=== PATIENT | female | born 1960 | race Caucasian/White ===

== ENCOUNTER 2020-06-10 08:35 | Day surgery (SDC) | payer BC ==
[2020-06-10] MEDS ORDERED: Decadron 4 MG INJ IV ONE (08:36)
[2020-06-10] MEDS ORDERED: LIDOCAINE HCL 2% 100 MG/5 ML IJ ONE (08:36)
[2020-06-10] MEDS ORDERED: Ketamine HCl 50 MG/ML ONE (09:58)
[2020-06-10] MEDS ORDERED: DIPRIVAN 200 MG/20 ML IV ONE (09:58)
--- NOTE | 2020-06-10 11:38 | XRAY ---
Indication: Left C3-C5 MBB. Intraoperative fluoroscopy was provided for 31 seconds. 2 digital spot images submitted for interpretation demonstrates posterior needle tips projecting over the expected C3-C5 nerve roots. Correlate with intraoperative findings/report.
--- NOTE | 2020-06-10 11:51 | XRAY ---
31 seconds fluoroscopy time in surgery for left C3-C5 MBB.
[2020-06-10] MEDS ORDERED: Lactated Ringers 1,000 ML IV ONE (15:24)
== END 2020-06-10 10:40 | disposition home or self-care (01) ==
LOC: SDC-PAIN 08:35
PROVIDERS: ATTEND Psychiatry & Neurology Pain Medicine
DX: M47.812 Spondylosis without myelopathy or radiculopathy, cervical region (principal); E11.9 Type 2 diabetes mellitus without complications; I10 Essential (primary) hypertension; J45.909 Unspecified asthma, uncomplicated
CPT/HCPCS: 64490; 64491; 72020; 77002; 82962; J1100; J2704

== ENCOUNTER 2020-07-29 07:59 | Day surgery (SDC) | payer BC ==
[~2020-07-29 07:59] MED LIST: DIPRIVAN 200 MG/20 ML IV ONE; Ketamine HCl 50 MG/ML ONE
[2020-07-29] MEDS ORDERED: Decadron 4 MG INJ IV ONE (08:00)
[2020-07-29] MEDS ORDERED: BUPIVACAINE 0.5% VIAL IJ ONE (08:00)
--- NOTE | 2020-07-29 10:59 | XRAY ---
Indication: Left C3-C5 MBB. Intraoperative fluoroscopy was provided for 45 seconds. 3 digital spot images submitted for interpretation demonstrates posterior needle tips projecting over the expected left C3-C5 nerve roots. Correlate with intraoperative findings/report.
--- NOTE | 2020-07-29 10:59 | XRAY ---
45 seconds fluoroscopy time in surgery for left C3-C5 MBB.
[2020-07-29] MEDS ORDERED: Lactated Ringers 1,000 ML IV ONE (15:57)
== END 2020-07-29 10:33 | disposition home or self-care (01) ==
LOC: SDC-PAIN 07:59
PROVIDERS: ATTEND Psychiatry & Neurology Pain Medicine
DX: M47.812 Spondylosis without myelopathy or radiculopathy, cervical region (principal); I10 Essential (primary) hypertension; J45.909 Unspecified asthma, uncomplicated; Z79.899 Other long term (current) drug therapy; E11.9 Type 2 diabetes mellitus without complications
CPT/HCPCS: 64490; 64491; 72020; 77002; 82962; J1100; J2704

== ENCOUNTER 2020-08-12 09:13 | Day surgery (SDC) | payer BC ==
[2020-08-12] MEDS ORDERED: DIPRIVAN 200 MG/20 ML IV ONE (09:14)
[2020-08-12] MEDS ORDERED: Xylocaine 1% Vial 30 ML PF IJ ONE (09:14)
[2020-08-12] MEDS ORDERED: BUPIVACAINE 0.5% VIAL IJ ONE (09:14)
[2020-08-12] MEDS ORDERED: Decadron 4 MG INJ IV ONE (09:14)
[2020-08-12] MEDS ORDERED: Ketamine HCl 50 MG/ML IV ONE (09:14)
--- NOTE | 2020-08-12 11:37 | XRAY ---
Indication: Left C3-C5 RFA. Intraoperative fluoroscopy was provided for 48 seconds. 4 digital spot images submitted for interpretation demonstrates posterior needle tips projecting over the expected left C3-C5 nerve roots. Correlate with intraoperative findings/report.
--- NOTE | 2020-08-12 11:48 | XRAY ---
48 seconds fluoroscopy time in surgery for left C3-C5 RFA.
[2020-08-12] MEDS ORDERED: Lactated Ringers 1,000 ML IV ONE (16:48)
== END 2020-08-12 11:10 | disposition home or self-care (01) ==
LOC: SDC-PAIN 09:13
PROVIDERS: ATTEND Psychiatry & Neurology Pain Medicine
DX: M47.812 Spondylosis without myelopathy or radiculopathy, cervical region (principal); I10 Essential (primary) hypertension; E11.9 Type 2 diabetes mellitus without complications; Z79.899 Other long term (current) drug therapy
CPT/HCPCS: 64633; 64634; 72040; 77002; 82947; 82962; J1100; J2001; J2704

== ENCOUNTER 2021-07-21 05:42 | Day surgery (SDC) | payer BC ==
[2021-07-21] MEDS ORDERED: Lactated Ringers 1,000 ML IV ONE (06:30)
[2021-07-21] MEDS ORDERED: Versed 2 MG/2 ML Injection ONE (08:05)
[2021-07-21] MEDS ORDERED: DIPRIVAN 200 MG/20 ML IV ONE (08:06)
[2021-07-21 09:10] VITALS: O2SAT 95
[2021-07-21 09:17] VITALS: BP 150/85; PULSE 84
--- NOTE | 2021-07-21 09:45 | OP ---
SURGERY DATE/TIME: 07/21/2021 0808 PREOPERATIVE DIAGNOSIS: Dysphagia. POSTOPERATIVE DIAGNOSES: 1) Small hiatal hernia. 2) Suspected obstructive sleep apnea. PROCEDURE: EGD. SURGEON: Billy Vazquez M.D. ANESTHESIA: MAC by Momo Naranjo CRNA. ESTIMATED BLOOD LOSS: None. SPECIMENS: None. DESCRIPTION OF PROCEDURE: After informed written consent was obtained, the patient was taken to the endoscopy suite. She had a bite block inserted and was placed in the left lateral decubitus position. The anesthesia was titrated to the desired level of consciousness and shortly after she received propofol, the patient became apneic with some snoring, shallow respirations and became hypoxic. Anesthesia bag masked the patient for a short period of time until oxygen saturation improved and her pulse remained steady and she recovered nicely. Following this the endoscope was quickly placed in the posterior oropharynx and under direct visualization the esophagus was traversed. The gastric mucosa had a normal rugated appearance free of lesions or defects. The pylorus had no obvious mucosal abnormalities nor did the first or second portions of the duodenum upon traversing the pylorus. On retroflexion there was a small sliding hiatal hernia. Upon withdrawal the gastroesophageal junction and esophageal mucosa showed no gross abnormalities. The procedure was brief due to her apneic episode and the scope was removed and the patient recovered quickly. She was alert and conversant shortly following the procedure maintaining oxygenation. Discussed with the patient and her sister, she has never had a sleep study. I strongly recommend sleep study and relayed to her primary physician. I would also recommend proton pump inhibitor therapy at this time.
== END 2021-07-21 09:25 | disposition home or self-care (01) ==
LOC: SDC 05:42
PROVIDERS: ATTEND Family Medicine
DX: K44.9 Diaphragmatic hernia without obstruction or gangrene (principal); R06.81 Apnea, not elsewhere classified; R09.02 Hypoxemia; E03.9 Hypothyroidism, unspecified; I10 Essential (primary) hypertension; Z79.899 Other long term (current) drug therapy
CPT/HCPCS: 82947; J2250; J2704

== ENCOUNTER 2022-07-20 06:12 | Day surgery (SDC) | payer BC ==
[2022-07-20] MEDS ORDERED: Lactated Ringers 1,000 ML IV SCH (06:30)
[2022-07-20] MEDS ORDERED: DIPRIVAN 200 MG/20 ML IV ONE ×2 (06:51→08:11)
[2022-07-20] MEDS ORDERED: Xylocaine-Mpf 2% 5 Ml Vial ONE (06:51)
[2022-07-20 09:32] VITALS: BP 147/67; PULSE 80; O2SAT 95
--- NOTE | 2022-07-20 11:02 | OP ---
SURGERY DATE/TIME: 07/20/2022 0802 PREOPERATIVE DIAGNOSIS: History of colon polyps. POSTOPERATIVE DIAGNOSES: 1) Normal colon. 2) Diverticulosis. PROCEDURE: Colonoscopy. SURGEON: Billy Vazquez M.D. ANESTHESIA: MAC by Momo aNranjo CRNA. ESTIMATED BLOOD LOSS: None. SPECIMENS: None. DESCRIPTION OF PROCEDURE: After informed written consent was obtained, the patient was taken to the endoscopy suite. She was placed in left lateral decubitus position. Anesthesia was titrated to desired level of consciousness. Digital rectal exam showed normal sphincter tone and no internal lesions. The scope was inserted into the rectum and sequentially the entire colonic mucosa was traversed. The level of cecum was reached and verified with direct visualization of the ileocecal valve. Upon withdrawal careful mucosal inspection revealed scattered diverticula but no other mucosal lesions. Prior to withdrawal retroflexion showed no internal lesions. The scope was removed. The patient was transferred to the recovery room in good condition.
== END 2022-07-20 09:38 | disposition home or self-care (01) ==
LOC: SDC 06:12
PROVIDERS: ATTEND Family Medicine
DX: Z09 Encounter for follow-up examination after completed treatment for conditions other than malignant neoplasm (principal); Z86.010 Personal history of colon polyps; K57.30 Diverticulosis of large intestine without perforation or abscess without bleeding
CPT/HCPCS: J2704

== ENCOUNTER 2023-12-12 20:13 | Observation (INO) | payer OTHER ==
[2023-12-12 21:27] LABS: Absolute Neutrophil Ct (ANC) 8.39 x10^3/uL (1.4-6.9); BASOPHIL % 0.2 % (0.0-0.4); Basophil (Absolute #) 0.03 x10^3/uL (0-0.4); Eosinophil % 1.6 % (0.00-5.0); Eosinophil (Absolute #) 0.21 x10^3/uL (0-0.5); Hematocrit 38.9 % (35-47); Hemoglobin 11.9 g/dL (12.0-16.0); IMMATURE GRAN # 0.04 x10^3u/L (0.00-0.03); IMMATURE GRAN % 0.3 % (0.00-0.4); Lymphocyte (Absolute #) 3.74 x10^3/uL (1.0-4.6); Lymphocytes % 28.9 % (24.0-44.0); Mean Cell Volume 93.5 fL (78-100); Mean Corpuscular Hemoglobin 28.6 pg (26-32); Mean Corpuscular Hgb Concent. 30.6 g/dL (32-36); Mean Platelet Volume 9.5 fL (7.5-11.0); Monocyte (Absolute #) 0.52 x10^3/uL (0.0-1.3); Platelet Count 224 x10^3/uL (150-450); Red Blood Count 4.16 x10^6/uL (4.1-5.4); Red Cell Distribution Width 18.6 % (11.5-14.0); White Blood Count 12.9 x10^3/uL (4.0-10.5)
--- NOTE | 2023-12-12 21:35 | ERPHSYRPT ---
- History of Present Illness Time Seen by Provider: 12/12/23 20:25 Source: patient Exam Limitations: no limitations Patient Subjective Stated Complaint: pt states "My head started hurting yesterday and this morning my chest started hurting." Triage Nursing Assessment: pt ambulatory to bed by self with steady gait, daughter at bedside, pt alert and oriented x3, skin pwd, pt c/o headache that started yesterday and this morning pt's chest started hurting and radiates to L arm. lungs sounds clear throughout, pt afebrile. Physician History: Patient is a 63-year-old female presents to our ED for evaluation of headache an d chest pain. Patient reports her headache started yesterday and today she developed chest pain that radiated to her left arm. Pain described as an ache that is mild to moderate in intensity. No specific worsening improving factors. Patient denies a history of the same. Patient voices no other complaints or concerns at this time. Portions of this note were created with voice recognition technology. There may be grammatical, spelling, punctuation or sound alike errors Timing/Duration: yesterday Severity: moderate Modifying Factors: Improves With: nothing Associated Symptoms: denies symptoms Allergies/Adverse Reactions: No Known Drug Allergies Allergy (Verified 12/12/23 20:19) Home Medications: Levothyroxine Sodium 75 Mcg [Synthroid 75 Mcg] 75 mcg PO DAILY 03/10/15 [History] Citalopram Hydrobromide [Celexa] 40 mg PO DAILY 07/20/21 [History] Gemfibrozil [Lopid] 600 mg PO DAILY 07/20/21 [History] Atorvastatin Calcium 40 mg PO DAILY 07/08/22 [History] Carvedilol 3.125 mg [Coreg 3.125 MG] 6.25 mg PO BID 07/08/22 [History] Multivitamin 1 each PO DAILY 07/08/22 [History] Zolpidem Tartrate 5 mg PO DAILY 07/08/22 [History] Phentermine HCl 37.5 mg PO DAILY 12/12/23 [History] Hx Tetanus, Diphtheria Vaccination/Date Given: Yes Hx Influenza Vaccination/Date Given: Yes Hx Pneumococcal Vaccination/Date Given: Yes Immunizations Up to Date: Yes Travel Risk - International Travel Have you traveled outside of the country in past 3 weeks: No - Coronavirus Screening Are you exhibiting any of the following symptoms?: Yes Symptoms: Headaches/Body Aches/Fatigue Close contact with a COVID-19 positive Pt in past 14-21 Days: No - Vaccine Status Have you recieved a Covid-19 vaccination: Yes [employer]: Moderna - Vaccination Dates Date of 2cond Vaccination (if applicable): unk - Review of Systems Constitutional: No Symptoms, No Fever, No Chills Eyes: No Symptoms Ears, Nose, & Throat: No Symptoms Respiratory: No Symptoms, No Cough, No Dyspnea Cardiac: No Symptoms, No Chest Pain, No Edema, No Syncope Abdominal/Gastrointestinal: No Symptoms, No Abdominal Pain, No Nausea, No Vomiting, No Diarrhea Genitourinary Symptoms: No Symptoms, No Dysuria Musculoskeletal: No Symptoms, No Back Pain, No Neck Pain Skin: No Symptoms, No Rash Neurological: No Symptoms, No Dizziness, No Focal Weakness, No Sensory Changes Psychological: No Symptoms Endocrine: No Symptoms Hematologic/Lymphatic: No Symptoms Immunological/Allergic: No Symptoms All Other Systems: Reviewed and Negative - Past Medical History Pertinent Past Medical History: Yes Neurological History: No Pertinent History ENT History: No Pertinent History Cardiac History: Hypertension Respiratory History: Asthma, Sleep Apnea Endocrine Medical History: Hypothyroidism Musculoskeletal History: Other GI Medical History: No Pertinent History History: No Pertinent History Psycho-Social History: Anxiety, Depression Female Reproductive Disorders: No Pertinent History Other Medical History: RTC REPAIR; R TKA. MELANOMA 2019. MULTIPLE BASAL CELL CARCINOMAS OF SKIN. CATARACTS - Past Surgical History Past Surgical History: Yes Neuro Surgical History: No Pertinent History Cardiac: No Pertinent History Respiratory: No Pertinent History Gastrointestinal: No Pertinent History Genitourinary: No Pertinent History Musculoskeletal: No Pertinent History Female Surgical History: Hysterectomy Other Surgical History: right knee replacement. skin cancer removed from her back/left shoulder - Social History Smoking Status: Never smoker Exposure to second hand smoke: Yes Drug Use: none Patient Lives Alone: No - Nursing Vital Signs Nursing Vital Signs: Initial Vital Signs Temperature 98.6 F 12/12/23 20:22 Pulse Rate 87 12/12/23 20:22 Respiratory Rate 17 12/12/23 20:22 Blood Pressure 151/74 12/12/23 20:22 O2 Sat by Pulse Oximetry 92 L 12/12/23 20:22 Pain Scale Pain Intensity 2 - Physical Exam General Appearance: no apparent distress, alert Eye Exam: PERRL/EOMI, eyes nml inspection Ears, Nose, Throat Exam: normal ENT inspection, TMs normal, pharynx normal, moist mucous membranes Neck Exam: normal inspection, non-tender, supple, full range of motion Respiratory Exam: normal breath sounds, lungs clear, airway intact, No respiratory distress Cardiovascular Exam: regular rate/rhythm, normal heart sounds, normal peripheral pulses Gastrointestinal/Abdomen Exam: soft, normal bowel sounds, No tenderness, No mass Back Exam: normal inspection, normal range of motion, No CVA tenderness, No vertebral tenderness Extremity Exam: normal inspection, normal range of motion, pelvis stable Neurologic Exam: alert, oriented x 3, cooperative, normal mood/affect, nml cerebellar function, nml station & gait, sensation nml, No motor deficits Skin Exam: normal color, warm, dry, No rash Lymphatic Exam: No adenopathy SpO2 Interpretation: normal SpO2: 93 O2 Delivery: Room Air - Course Nursing assessment & vital signs reviewed: Yes EKG Interpreted by Me: RATE (67), Sinus Rhythm, NORMAL AXIS, NORMAL INTERVALS - Radiology Exams Chest X-ray Interpretation: Interpreted by me (non acute chest) - CT Exams Head CT Interpretation: Tele-radiologist Report (Right maxillary sinusitis otherwise negative CT head) Ordered Tests: Active Orders 24 hr Category Date Time Status Voicer STAT Care 12/12/23 21:03 Active EKG-ER Only STAT Care 12/12/23 21:02 Active IV Insertion STAT Care 12/12/23 21:02 Active Pulse Oximetry (ED) STAT Care 12/12/23 21:02 Active CHEST 1 VIEW (PORTABLE) Stat Exams 12/12/23 22:21 Taken HEAD WITHOUT CONTRAST [CT] Stat Exams 12/12/23 22:21 Completed CBC W DIFF Stat Lab 12/12/23 21:02 Completed CMP Stat Lab 12/12/23 21:20 Completed D-DIMER QUANTITATIVE Stat Lab 12/12/23 21:20 Completed TROPONIN Q4H Lab 12/12/23 21:20 Completed TROPONIN Q4H Lab 12/13/23 00:36 Received TROPONIN Q4H Lab 12/13/23 05:15 Ordered UA W/RFX UR CULTURE Stat Lab 12/12/23 21:53 Completed Medication Summary Discontinued Medications Generic Name Dose Route Start Last Admin Trade Name Freq PRN Reason Stop Dose Admin Ketorolac Tromethamine 30 mg 12/12/23 21:03 12/12/23 21:44 Ketorolac Tromethamine 30 Mg/Ml Inj IV 12/12/23 21:04 30 mg STAT ONE Administration Ketorolac Tromethamine Confirm 12/12/23 21:40 Ketorolac Tromethamine 30 Mg/Ml Inj Administered 12/12/23 21:41 Dose 30 mg .ROUTE .[employer] ONE Prochlorperazine Edisylate 10 mg 12/12/23 21:04 12/12/23 21:45 Prochlorperazine Edisylate 10 Mg/2 Ml Vial IV 12/12/23 21:05 10 mg STAT ONE Administration Prochlorperazine Edisylate Confirm 12/12/23 21:40 Prochlorperazine Edisylate 10 Mg/2 Ml Vial Administered 12/12/23 21:41 Dose 10 mg .ROUTE .[employer] ONE Lab/Rad Data: Laboratory Result Diagrams 12/12/23 21:02 12/12/23 21:20 Laboratory Results 12/12/23 12/12/23 12/12/23 Range/Units 21:53 21:20 21:20 WBC (4.0-10.5) x10^3/uL RBC (4.1-5.4) x10^6/uL Hgb (12.0-16.0) g/dL Hct (35-47) % MCV (78-100) fL MCH (26-32) pg MCHC (32-36) g/dL RDW (11.5-14.0) % Plt Count (150-450) x10^3/uL MPV (7.5-11.0) fL Gran % (36.0-66.0) % Immature Gran % (Auto) (0.00-0.4) % Nucleat RBC Rel Count (0.00-0.1) % Eos # (Auto) (0-0.5) x10^3/uL Immature Gran # (Auto) (0.00-0.03) x10^3u/L Absolute Lymphs (auto) (1.0-4.6) x10^3/uL Absolute Monos (auto) (0.0-1.3) x10^3/uL Absolute Nucleated RBC (0.00-0.01) x10^3u/L Lymphocytes % (24.0-44.0) % Monocytes % (0.0-12.0) % Eosinophils % (0.00-5.0) % Basophils % (0.0-0.4) % Absolute Granulocytes (1.4-6.9) x10^3/uL Basophils # (0-0.4) x10^3/uL D-Dimer (0.0-0.50) mg/L Sodium (137-145) mmol/L Potassium (3.5-5.1) mmol/L Chloride (98-107) mmol/L Carbon Dioxide (22-30) mmol/L Anion Gap (5-15) MEQ/L BUN (7-17) mg/dL Creatinine (0.52-1.04) mg/dL Estimated GFR ML/MIN Glucose (74-106) mg/dL Calcium (8.4-10.2) mg/dL Total Bilirubin (0.2-1.3) mg/dL AST (14-36) U/L ALT (0-35) U/L Alkaline Phosphatase (38-126) U/L Troponin I < 0.012 (0.000-0.034) ng/mL Serum Total Protein (6.3-8.2) g/dL Albumin (3.5-5.0) g/dL Urine Color Yellow (Yellow) Urine Appearance Clear (Clear) Urine pH 7.5 (4.6-8.0) Ur Specific [place] 1.015 (1.005-1.030) Urine Protein Negative (Negative) Urine Glucose (UA) >=1000 A (Negative) mg/dL Urine Ketones Trace A (Negative) Urine Blood Negative (Negative) Urine Nitrite Negative (Negative) Urine Bilirubin Negative (Negative) Urine Urobilinogen 1.0 A (0.2) mg/dL Ur Leukocyte Esterase Negative (Negative) U Hyaline Cast (Auto) NONE SEEN (0-2) /LPF Urine Microscopic RBC 0-2 (0-5) /HPF Urine Microscopic WBC 3-5 (0-5) /HPF Ur Epithelial Cells None Seen (None Seen) /HPF Urine Bacteria None Seen (None Seen) /HPF Urine Culture Reflexed NO (NO) Influenza Type A Ag NEGATIVE (NEGATIVE) Influenza Type B Ag NEGATIVE (NEGATIVE) RSV (PCR) NEGATIVE (NEGATIVE) SARS-CoV-2 (PCR) NEGATIVE (NEGATIVE) 12/12/23 12/12/23 12/12/23 Range/Units 21:20 21:20 21:02 WBC 12.9 H (4.0-10.5) x10^3/uL RBC 4.16 (4.1-5.4) x10^6/uL Hgb 11.9 L (12.0-16.0) g/dL Hct 38.9 (35-47) % MCV 93.5 (78-100) fL MCH 28.6 (26-32) pg MCHC 30.6 L (32-36) g/dL RDW 18.6 H (11.5-14.0) % Plt Count 224 (150-450) x10^3/uL MPV 9.5 (7.5-11.0) fL Gran % 65.0 (36.0-66.0) % Immature Gran % (Auto) 0.3 (0.00-0.4) % Nucleat RBC Rel Count 0.0 (0.00-0.1) % Eos # (Auto) 0.21 (0-0.5) x10^3/uL Immature Gran # (Auto) 0.04 H (0.00-0.03) x10^3u/L Absolute Lymphs (auto) 3.74 (1.0-4.6) x10^3/uL Absolute Monos (auto) 0.52 (0.0-1.3) x10^3/uL Absolute Nucleated RBC 0.00 (0.00-0.01) x10^3u/L Lymphocytes % 28.9 (24.0-44.0) % Monocytes % 4.0 (0.0-12.0) % Eosinophils % 1.6 (0.00-5.0) % Basophils % 0.2 (0.0-0.4) % Absolute Granulocytes 8.39 H (1.4-6.9) x10^3/uL Basophils # 0.03 (0-0.4) x10^3/uL D-Dimer 0.42 (0.0-0.50) mg/L Sodium 139 (137-145) mmol/L Potassium 3.7 (3.5-5.1) mmol/L Chloride 104 (98-107) mmol/L Carbon Dioxide 29 (22-30) mmol/L Anion Gap 10.2 (5-15) MEQ/L BUN 13 (7-17) mg/dL Creatinine 0.67 (0.52-1.04) mg/dL Estimated GFR 99.4 ML/MIN Glucose 99 (74-106) mg/dL Calcium 9.2 (8.4-10.2) mg/dL Total Bilirubin 1.30 (0.2-1.3) mg/dL AST 24 (14-36) U/L ALT 30 (0-35) U/L Alkaline Phosphatase 84 (38-126) U/L Troponin I (0.000-0.034) ng/mL Serum Total Protein 6.6 (6.3-8.2) g/dL Albumin 4.0 (3.5-5.0) g/dL Urine Color (Yellow) Urine Appearance (Clear) Urine pH (4.6-8.0) Ur Specific [place] (1.005-1.030) Urine Protein (Negative) Urine Glucose (UA) (Negative) mg/dL Urine Ketones (Negative) Urine Blood (Negative) Urine Nitrite (Negative) Urine Bilirubin (Negative) Urine Urobilinogen (0.2) mg/dL Ur Leukocyte Esterase (Negative) U Hyaline Cast (Auto) (0-2) /LPF Urine Microscopic RBC (0-5) /HPF Urine Microscopic WBC (0-5) /HPF Ur Epithelial Cells (None Seen) /HPF Urine Bacteria (None Seen) /HPF Urine Culture Reflexed (NO) Influenza Type A Ag (NEGATIVE) Influenza Type B Ag (NEGATIVE) RSV (PCR) (NEGATIVE) SARS-CoV-2 (PCR) (NEGATIVE) - Progress Progress: improved (Case is discussed with Dr. Carmen at 1:23 AM) Progress Note: Case discussed with Dr. Carmen at 1:23 AM who accepts admission to observation. 63-year-old female presents to our ED with complaint of a headache and chest pain. Chest pain radiates to her left arm. Physical exam function unremarkable. Preliminary workup negative. Troponin negative x 2. Patient headache resolved after administration of Toradol and Compazine. D-dimer n egative. Patient's heart score is 4. Patient will be admitted for further evaluation and treatment. Plan of care discussed with patient. She agrees to admission [facility] for further evaluation and treatment. Portions of this note were created with voice recognition technology. There may be grammatical, spelling, punctuation or sound alike errors Complexity problem addressed is moderate acute complicated No critical care time Complexity of data reviewed and analyzed is moderate. Test ordered test reviewed. Results advised and correlated clinically with history and physical exam. Risk of complication and the risk morbidity/mortality of patient management is high. Patient requires hospitalization for further evaluation and treatment. Vital stable. Time spent to admit patient approximately 20 minutes. Plan of care established for shared decision making. No social determinants of health presents in pain follow-up. Portions of this note were created with voice recognition technology. There may be grammatical, spelling, punctuation or sound alike errors 12/13/23 01:23 Will see patient in: hospital (observation) Counseled pt/family regarding: lab results, diagnosis, rad results - Departure Departure Disposition: Observation Clinical Impression: Right maxillary sinusitis, Glucosuria, Chest pain, ACS (acute coronary syndr ome) Condition: Stable Critical Care Time: No Referrals: ALMA ROSA CASTILLO MD [Primary Care Provider] - Follow up/PCP as directed
[2023-12-12] MEDS ORDERED: TORAdol 30 mg Injection ONE (21:40)
[2023-12-12] MEDS ORDERED: Compazine 10 MG/2 ML ONE (21:40)
[2023-12-12 21:41] LABS: ANION GAP 10.2 MEQ/L (5-15); BILIRUBIN,TOTAL 1.3 mg/dL (0.2-1.3); Calcium 9.2 mg/dL (8.4-10.2); Creatinine 1 0.67 mg/dL (0.52-1.04); EST GLOMERULAR FILTRATION RATE 99.4 ML/MIN; Potassium 3.7 mmol/L (3.5-5.1); Total Protein 6.6 g/dL (6.3-8.2)
[2023-12-12] MEDS: TORAdol 30 mg Injection IV ONE (21:44)
[2023-12-12] MEDS: Compazine 10 MG/2 ML IV ONE (21:45)
[2023-12-12 22:03] LABS: INFLUENZA A NEGATIVE (NEGATIVE); INFLUENZA B NEGATIVE (NEGATIVE); RESPIRATORY SYNCTIAL VIRUS NEGATIVE (NEGATIVE); SARS-CoV-2 Xpert Express NEGATIVE (NEGATIVE)
[2023-12-12 22:49] LABS: Appearance Clear (Clear); Bacteria None Seen /HPF (None Seen); Bilirubin Negative (Negative); Blood Negative (Negative); Epithelial Cells None Seen /HPF (None Seen); Glucose, Urine >=1000 mg/dL (Negative); Hyaline Casts NONE SEEN /LPF (0-2); Ketones Trace (Negative); Leukocyte Esterase Negative (Negative); Nitrite Negative (Negative); Ph 7.5 (4.6-8.0); Protein,Urine Dip Negative (Negative); RBC 0-2 /HPF (0-5); Specific Gravity 1.015 (1.005-1.030)
[2023-12-12 22:51] LABS: ADD URINE CULTURE? NO (NO)
--- NOTE | 2023-12-12 22:54 | XRAY ---
CLINICAL HISTORY: pain TECHNIQUE: Axial noncontrast CT scan of the brain was performed from the skull base to the high parietal region. COMPARISON: None FINDINGS: No area of acute intracranial infarction or hematoma is noted. The visualized brain parenchyma shows normal appearance. No area of hyperacute or acute infarction is noted. No intracerebral or extra axial hematoma. Shirley-white matter differentiation is maintained. No mass effect or midline shift. No space occupying lesion noted. Normal size and configuration of the cerebral ventricles. Normal CT appearance of the posterior fossa structures namely the cerebellar hemispheres, brainstem and cerebellar peduncles. The IACs are unremarkable. The cerebello-pontine angles are clear. The pituitary gland, the pineal gland, the optic chiasm is unremarkable. The osseous structures in the skull base are unremarkable. No definite calvarium fractures. Air-fluid level is noted in right maxillary sinus suggestive of acute sinusitis. Rest of scanned paranasal sinuses are clear. IMPRESSION: No acute pathology identified in this CT Head/Brain. Electronically Signed by: Adolfo Wade MD. (12/12/2023 22:50:46 EST)
[2023-12-13] MEDS ORDERED: BABY ASPIRIN 81 MG CHEW ONE (01:32)
[2023-12-13] MEDS: BABY ASPIRIN 81 MG CHEW PO ONE (01:33)
--- NOTE | 2023-12-13 01:49 | PCM.HP ---
History of Present Illness - Chief Complaint Chief Complaint: chest pain/headache Date: 12/13/23 History of Present Illness: Ms. ZAYAS is a 63 year old female with a past medical history significant for hypertension, hypothyroidism and hyperlipidemia who presents to the ER with complaints of an initial headache that did not improve, then developed left sided chest pain with radiation down the L arm. She was evaluated and so far found to have two negative troponins, but given her symptoms and age, she was recommended for admission. She is resting in bed, awake/alert. She denies any nausea, vomiting or diarrhea. Did have some chest pain but no shortness of valeria th or palpitations. - Review of Systems Eyes: No Symptoms Ears, Nose, & Throat: No Symptoms Respiratory: No Cough, No Orthopnea Cardiac: No Chest Pain, No Edema, No Palpitations Abdominal/Gastrointestinal: No Abdominal Pain, No Nausea, No Vomiting, No Diarrhea Genitourinary Symptoms: No Dysuria, No Frequency Musculoskeletal: Back Pain, Neck Pain, Myalgias Skin: No Cellulitis, No Rash Neurological: Headache Psychological: No Suicidal Ideations Endocrine: No Polyuria, No Polydipsia Medications & Allergies Home Medications: Home Medication List Levothyroxine Sodium 75 Mcg [Synthroid 75 Mcg] 75 mcg PO DAILY 03/10/15 [History Confirmed 12/12/23] Citalopram Hydrobromide [Celexa] 40 mg PO DAILY 07/20/21 [History Confirmed 12/12/23] Gemfibrozil [Lopid] 600 mg PO DAILY 07/20/21 [History Confirmed 12/12/23] PANTOPRAZOLE 40 mg Tablet [Protonix 40MG Tablet] 40 mg PO QAM #30 tab 07/21/21 [Rx Confirmed 12/12/23] Atorvastatin Calcium 40 mg PO DAILY 07/08/22 [History Confirmed 12/12/23] Carvedilol 3.125 mg [Coreg 3.125 MG] 6.25 mg PO BID 07/08/22 [History Confirmed 12/12/23] Multivitamin 1 each PO DAILY 07/08/22 [History Confirmed 12/12/23] Zolpidem Tartrate 5 mg PO DAILY 07/08/22 [History Confirmed 12/12/23] Phentermine HCl 37.5 mg PO DAILY 12/12/23 [History Confirmed 12/12/23] Allergies/Adverse Reactions: Allergies Allergy/AdvReac Type Severity Reaction Status Date / Time No Known Drug Allergies Allergy Verified 12/12/23 20:19 - Past Medical History Past Medical History: Yes Neurological History: No Pertinent History ENT History: No Pertinent History Cardiac History: Hypertension Respiratory History: Asthma, Sleep Apnea Endocrine Medical History: Hypothyroidism Musculoskelatal History: Other GI Medical History: No Pertinent History History: No Pertinent History Pyscho-Social History: Anxiety, Depression Reproductive Disorders: No Pertinent History Comment: RTC REPAIR; R TKA. MELANOMA 2019. MULTIPLE BASAL CELL CARCINOMAS OF SKIN. CATARACTS - Past Surgical History Past Surgical History: Yes Neuro Surgical History: No Pertinent History Cardiac History: No Pertinent History Respiratory Surgery: No Pertinent History GI Surgical History: No Pertinent History Genitourinary Surgical Hx: No Pertinent History Musculskeletal Surgical Hx: No Pertinent History Female Surgical History: Hysterectomy Other Surgical History: right knee replacement. skin cancer removed from her back/left shoulder - Social History Smoking Status: Never smoker Exposure to second hand smoke: Yes Alcohol: None Drug Use: none - Physical Exam Vital Signs: Vital Signs - 24 hr Temp Pulse Resp BP BP Pulse Ox 12/13/23 01:28 93 L 12/13/23 01:01 82 17 121/65 97 12/13/23 00:30 77 17 131/67 96 12/13/23 00:01 90 15 114/49 92 L 12/12/23 23:30 83 17 128/65 95 12/12/23 23:01 87 20 125/65 98 12/12/23 22:31 102 H 12 134/65 96 12/12/23 22:01 78 15 133/69 95 12/12/23 21:31 77 18 145/74 93 L 12/12/23 21:13 93 L 12/12/23 21:00 82 18 110/55 90 L 12/12/23 20:30 86 20 125/61 90 L 12/12/23 20:22 98.6 F 87 17 151/74 92 L General Appearance: no apparent distress Neurologic Exam: alert Neck Exam: supple Respiratory Exam: lungs clear, No respiratory distress Cardiovascular Exam: regular rate/rhythm Gastrointestinal/Abdomen Exam: soft Extremity Exam: No pedal edema Skin Exam: warm, No rash Results - Labs Lab/Micro Results: Lab Results-Last 24 Hours 12/12/23 12/12/23 12/12/23 Range/Units 21:02 21:20 21:20 WBC 12.9 H (4.0-10.5) x10^3/uL RBC 4.16 (4.1-5.4) x10^6/uL Hgb 11.9 L (12.0-16.0) g/dL Hct 38.9 (35-47) % MCV 93.5 (78-100) fL MCH 28.6 (26-32) pg MCHC 30.6 L (32-36) g/dL RDW 18.6 H (11.5-14.0) % Plt Count 224 (150-450) x10^3/uL MPV 9.5 (7.5-11.0) fL Gran % 65.0 (36.0-66.0) % Immature Gran % (Auto) 0.3 (0.00-0.4) % Nucleat RBC Rel Count 0.0 (0.00-0.1) % Eos # (Auto) 0.21 (0-0.5) x10^3/uL Immature Gran # (Auto) 0.04 H (0.00-0.03) x10^3u/L Absolute Lymphs (auto) 3.74 (1.0-4.6) x10^3/uL Absolute Monos (auto) 0.52 (0.0-1.3) x10^3/uL Absolute Nucleated RBC 0.00 (0.00-0.01) x10^3u/L Lymphocytes % 28.9 (24.0-44.0) % Monocytes % 4.0 (0.0-12.0) % Eosinophils % 1.6 (0.00-5.0) % Basophils % 0.2 (0.0-0.4) % Absolute Granulocytes 8.39 H (1.4-6.9) x10^3/uL Basophils # 0.03 (0-0.4) x10^3/uL D-Dimer 0.42 (0.0-0.50) mg/L Sodium 139 (137-145) mmol/L Potassium 3.7 (3.5-5.1) mmol/L Chloride 104 (98-107) mmol/L Carbon Dioxide 29 (22-30) mmol/L Anion Gap 10.2 (5-15) MEQ/L BUN 13 (7-17) mg/dL Creatinine 0.67 (0.52-1.04) mg/dL Estimated GFR 99.4 ML/MIN Glucose 99 (74-106) mg/dL Calcium 9.2 (8.4-10.2) mg/dL Total Bilirubin 1.30 (0.2-1.3) mg/dL AST 24 (14-36) U/L ALT 30 (0-35) U/L Alkaline Phosphatase 84 (38-126) U/L Troponin I (0.000-0.034) ng/mL Serum Total Protein 6.6 (6.3-8.2) g/dL Albumin 4.0 (3.5-5.0) g/dL Urine Color (Yellow) Urine Appearance (Clear) Urine pH (4.6-8.0) Ur Specific [place] (1.005-1.030) Urine Protein (Negative) Urine Glucose (UA) (Negative) mg/dL Urine Ketones (Negative) Urine Blood (Negative) Urine Nitrite (Negative) Urine Bilirubin (Negative) Urine Urobilinogen (0.2) mg/dL Ur Leukocyte Esterase (Negative) U Hyaline Cast (Auto) (0-2) /LPF Urine Microscopic RBC (0-5) /HPF Urine Microscopic WBC (0-5) /HPF Ur Epithelial Cells (None Seen) /HPF Urine Bacteria (None Seen) /HPF Urine Culture Reflexed (NO) Influenza Type A Ag (NEGATIVE) Influenza Type B Ag (NEGATIVE) RSV (PCR) (NEGATIVE) SARS-CoV-2 (PCR) (NEGATIVE) 12/12/23 12/12/23 12/12/23 Range/Units 21:20 21:20 21:53 WBC (4.0-10.5) x10^3/uL RBC (4.1-5.4) x10^6/uL Hgb (12.0-16.0) g/dL Hct (35-47) % MCV (78-100) fL MCH (26-32) pg MCHC (32-36) g/dL RDW (11.5-14.0) % Plt Count (150-450) x10^3/uL MPV (7.5-11.0) fL Gran % (36.0-66.0) % Immature Gran % (Auto) (0.00-0.4) % Nucleat RBC Rel Count (0.00-0.1) % Eos # (Auto) (0-0.5) x10^3/uL Immature Gran # (Auto) (0.00-0.03) x10^3u/L Absolute Lymphs (auto) (1.0-4.6) x10^3/uL Absolute Monos (auto) (0.0-1.3) x10^3/uL Absolute Nucleated RBC (0.00-0.01) x10^3u/L Lymphocytes % (24.0-44.0) % Monocytes % (0.0-12.0) % Eosinophils % (0.00-5.0) % Basophils % (0.0-0.4) % Absolute Granulocytes (1.4-6.9) x10^3/uL Basophils # (0-0.4) x10^3/uL D-Dimer (0.0-0.50) mg/L Sodium (137-145) mmol/L Potassium (3.5-5.1) mmol/L Chloride (98-107) mmol/L Carbon Dioxide (22-30) mmol/L Anion Gap (5-15) MEQ/L BUN (7-17) mg/dL Creatinine (0.52-1.04) mg/dL Estimated GFR ML/MIN Glucose (74-106) mg/dL Calcium (8.4-10.2) mg/dL Total Bilirubin (0.2-1.3) mg/dL AST (14-36) U/L ALT (0-35) U/L Alkaline Phosphatase (38-126) U/L Troponin I < 0.012 (0.000-0.034) ng/mL Serum Total Protein (6.3-8.2) g/dL Albumin (3.5-5.0) g/dL Urine Color Yellow (Yellow) Urine Appearance Clear (Clear) Urine pH 7.5 (4.6-8.0) Ur Specific [place] 1.015 (1.005-1.030) Urine Protein Negative (Negative) Urine Glucose (UA) >=1000 A (Negative) mg/dL Urine Ketones Trace A (Negative) Urine Blood Negative (Negative) Urine Nitrite Negative (Negative) Urine Bilirubin Negative (Negative) Urine Urobilinogen 1.0 A (0.2) mg/dL Ur Leukocyte Esterase Negative (Negative) U Hyaline Cast (Auto) NONE SEEN (0-2) /LPF Urine Microscopic RBC 0-2 (0-5) /HPF Urine Microscopic WBC 3-5 (0-5) /HPF Ur Epithelial Cells None Seen (None Seen) /HPF Urine Bacteria None Seen (None Seen) /HPF Urine Culture Reflexed NO (NO) Influenza Type A Ag NEGATIVE (NEGATIVE) Influenza Type B Ag NEGATIVE (NEGATIVE) RSV (PCR) NEGATIVE (NEGATIVE) SARS-CoV-2 (PCR) NEGATIVE (NEGATIVE) 12/13/23 Range/Units 00:36 WBC (4.0-10.5) x10^3/uL RBC (4.1-5.4) x10^6/uL Hgb (12.0-16.0) g/dL Hct (35-47) % MCV (78-100) fL MCH (26-32) pg MCHC (32-36) g/dL RDW (11.5-14.0) % Plt Count (150-450) x10^3/uL MPV (7.5-11.0) fL Gran % (36.0-66.0) % Immature Gran % (Auto) (0.00-0.4) % Nucleat RBC Rel Count (0.00-0.1) % Eos # (Auto) (0-0.5) x10^3/uL Immature Gran # (Auto) (0.00-0.03) x10^3u/L Absolute Lymphs (auto) (1.0-4.6) x10^3/uL Absolute Monos (auto) (0.0-1.3) x10^3/uL Absolute Nucleated RBC (0.00-0.01) x10^3u/L Lymphocytes % (24.0-44.0) % Monocytes % (0.0-12.0) % Eosinophils % (0.00-5.0) % Basophils % (0.0-0.4) % Absolute Granulocytes (1.4-6.9) x10^3/uL Basophils # (0-0.4) x10^3/uL D-Dimer (0.0-0.50) mg/L Sodium (137-145) mmol/L Potassium (3.5-5.1) mmol/L Chloride (98-107) mmol/L Carbon Dioxide (22-30) mmol/L Anion Gap (5-15) MEQ/L BUN (7-17) mg/dL Creatinine (0.52-1.04) mg/dL Estimated GFR ML/MIN Glucose (74-106) mg/dL Calcium (8.4-10.2) mg/dL Total Bilirubin (0.2-1.3) mg/dL AST (14-36) U/L ALT (0-35) U/L Alkaline Phosphatase (38-126) U/L Troponin I < 0.012 (0.000-0.034) ng/mL Serum Total Protein (6.3-8.2) g/dL Albumin (3.5-5.0) g/dL Urine Color (Yellow) Urine Appearance (Clear) Urine pH (4.6-8.0) Ur Specific [place] (1.005-1.030) Urine Protein (Negative) Urine Glucose (UA) (Negative) mg/dL Urine Ketones (Negative) Urine Blood (Negative) Urine Nitrite (Negative) Urine Bilirubin (Negative) Urine Urobilinogen (0.2) mg/dL Ur Leukocyte Esterase (Negative) U Hyaline Cast (Auto) (0-2) /LPF Urine Microscopic RBC (0-5) /HPF Urine Microscopic WBC (0-5) /HPF Ur Epithelial Cells (None Seen) /HPF Urine Bacteria (None Seen) /HPF Urine Culture Reflexed (NO) Influenza Type A Ag (NEGATIVE) Influenza Type B Ag (NEGATIVE) RSV (PCR) (NEGATIVE) SARS-CoV-2 (PCR) (NEGATIVE) - Radiology Impressions Radiology Exams & Impressions: Radiology Procedures Category Date Time Status CHEST 1 VIEW (PORTABLE) Stat Exams 12/12/23 22:21 Taken HEAD WITHOUT CONTRAST [CT] Stat Exams 12/12/23 22:21 Completed Assessment/Plan (1) Essential (primary) hypertension Current Visit: Yes Status: Acute Assessment & Plan: Under reasonable control, on beta ezequiel 1. Continue Coreg and other bp meds 2. Monitor blood pressure readings Code(s): I10 - ESSENTIAL (PRIMARY) HYPERTENSION (2) Chest pain Current Visit: Yes Status: Acute Assessment & Plan: Initial headache now with movement of pain into L chest with radiation down L ar m 1. Admit to hospital 2. Start on telemetry monitoring 3. ASA/beta ezequiel, check lipids 4. Trend cardiac enzymes Code(s): R07.9 - CHEST PAIN, UNSPECIFIED (3) Hyperlipidemia, unspecified Current Visit: Yes Status: Acute Qualifiers: Hyperlipidemia type: mixed hyperlipidemia Qualified Code(s): E78.2 - Mixed hyperlipidemia Assessment & Plan: On statin and gemfibrozil 1. Check lipids 2. Continue statin/gemfibrozil 3. Low Na/salt diet Code(s): E78.5 - HYPERLIPIDEMIA, UNSPECIFIED Telemedicine Encounter - Telemedicine Encounter Telemedicine Encounter: The entirety of this encounter was performed via Telemedicine"
[2023-12-13] MEDS ORDERED: TYLENOL 325 MG PO PRN (01:59)
[2023-12-13] MEDS ORDERED: Docusate Sodium 100 MG PO PRN (01:59)
[2023-12-13] MEDS: Sodium Chloride 0.9% 1000 ML 1,000 ML IV SCH (02:33)
[2023-12-13] MEDS ORDERED: DUONEB 0.5-3 MG/3 ml Neb IH PRN (04:23)
[2023-12-13 04:27] VITALS: TEMP 97.2
[2023-12-13 05:29] LABS: Hematocrit 36.6 % (35-47); Hemoglobin 11.3 g/dL (12.0-16.0); Mean Cell Volume 93.1 fL (78-100); Mean Corpuscular Hemoglobin 28.8 pg (26-32); Mean Corpuscular Hgb Concent. 30.9 g/dL (32-36); Mean Platelet Volume 10.4 fL (7.5-11.0); Platelet Count 204 x10^3/uL (150-450); Red Blood Count 3.93 x10^6/uL (4.1-5.4); Red Cell Distribution Width 18.8 % (11.5-14.0); White Blood Count 10.5 x10^3/uL (4.0-10.5)
[2023-12-13 05:54] LABS: ALBUMIN 3.7 g/dL (3.5-5.0); ANION GAP 9.8 MEQ/L (5-15); BILIRUBIN,TOTAL 1.1 mg/dL (0.2-1.3); Calcium 8.8 mg/dL (8.4-10.2); Creatinine 1 0.67 mg/dL (0.52-1.04); EST GLOMERULAR FILTRATION RATE 99.4 ML/MIN; Potassium 3.5 mmol/L (3.5-5.1); Total Protein 6.3 g/dL (6.3-8.2)
[2023-12-13] MEDS ORDERED: DUONEB 0.5-3 MG/3 ml Neb IH SCH (07:00)
[2023-12-13] MEDS: SYNTHROID 75 MCG PO SCH (07:50)
[2023-12-13 08:55] LABS: Basophil 1 % (0.0-1.0); Eosinophil 5 % (0.00-3.0); Lymphocytes 37 % (24-44); Monocyte 4 % (0.0-12.0); Neutrophils 53 % (36.0-66.0); Total Cells Counted 100
[2023-12-13 08:56] LABS: Platelet Estimate NORMAL (NORMAL)
--- NOTE | 2023-12-13 09:09 | XRAY ---
Indication: Chest pain and headache. Comparison: March 30, 2022 Portable chest unchanged again demonstrating minimal lingula fibrosis/scarring. Remaining heart and lungs normal. Bony thorax intact with degenerative changes. No new/acute findings.
[2023-12-13] MEDS: ECOTRIN 81 MG PO SCH (09:47)
[2023-12-13] MEDS: Protonix 40MG Tablet PO SCH (09:47)
[2023-12-13] MEDS: ENOXAPARIN SODIUM SQ SCH (09:47)
[2023-12-13] MEDS: ZOCOR 20MG PO SCH (09:47)
[2023-12-13] MEDS: Coreg 3.125 MG PO SCH (09:47)
[2023-12-13] MEDS ORDERED: BABY ASPIRIN 81 MG CHEW PO SCH (10:00)
[2023-12-13] MEDS ORDERED: LIPITOR 40MG PO SCH (10:00)
--- NOTE | 2023-12-13 11:38 | PCM.DS ---
Discharge Summary Date of Admission: 12/13/23 01:48 Date of Discharge: 12/13/23 Admitting Physician: ALESSANDRA GARCIA MD Primary Care Provider: ALMA ROSA CASTILLO KEO Allergies Allergies No Known Drug Allergies Allergy (Verified 12/12/23 20:19) Hospital Summary - Hospital Course Hospital Course: Ms. ZAYAS is a 63 year old female with a past medical history significant for hypertension, hypothyroidism, and hyperlipidemia. She presented to the ER with complaints of an initial headache that did not improve, then developed left sided chest pain with radiation down the L arm. She was evaluated and had two negative troponins, but given her symptoms and age, she was recommended for admission. Trop x3 negative. She denies any Cp since admission. CXR and CT head show no acute concerns. She is feeling better and would like to go home. She denies CP, SOB, H/A, abd. pain, N/V/D. - Vitals & Intake/Output Vital Signs: Vital Signs Temperature 97.2 F 12/13/23 08:00 Pulse Rate 80 12/13/23 08:00 Respiratory Rate 17 12/13/23 08:00 Blood Pressure 126/60 12/13/23 08:00 O2 Sat by Pulse Oximetry 95 12/13/23 08:00 Intake & Output: Intake & Output 12/10/23 12/11/23 12/12/23 12/13/23 11:59 11:59 11:59 11:59 Intake Total 547 Balance 547 Weight 86.9 kg - Lab Result Diagrams: 12/13/23 05:01 12/13/23 05:01 Lab Results-Last 24 Hrs: Lab Results-Last 24 Hours 12/12/23 12/12/23 12/12/23 Range/Units 21:02 21:20 21:20 WBC 12.9 H (4.0-10.5) x10^3/uL RBC 4.16 (4.1-5.4) x10^6/uL Hgb 11.9 L (12.0-16.0) g/dL Hct 38.9 (35-47) % MCV 93.5 (78-100) fL MCH 28.6 (26-32) pg MCHC 30.6 L (32-36) g/dL RDW 18.6 H (11.5-14.0) % Plt Count 224 (150-450) x10^3/uL MPV 9.5 (7.5-11.0) fL Gran % 65.0 (36.0-66.0) % Immature Gran % (Auto) 0.3 (0.00-0.4) % Nucleat RBC Rel Count 0.0 (0.00-0.1) % Eos # (Auto) 0.21 (0-0.5) x10^3/uL Immature Gran # (Auto) 0.04 H (0.00-0.03) x10^3u/L Absolute Lymphs (auto) 3.74 (1.0-4.6) x10^3/uL Absolute Monos (auto) 0.52 (0.0-1.3) x10^3/uL Absolute Nucleated RBC 0.00 (0.00-0.01) x10^3u/L Lymphocytes % 28.9 (24.0-44.0) % Monocytes % 4.0 (0.0-12.0) % Eosinophils % 1.6 (0.00-5.0) % Basophils % 0.2 (0.0-0.4) % Absolute Granulocytes 8.39 H (1.4-6.9) x10^3/uL Segmented Neutrophils (36.0-66.0) % Lymphocytes (Manual) (24-44) % Monocytes (Manual) (0.0-12.0) % Eosinophils (Manual) (0.00-3.0) % Basophils (Manual) (0.0-1.0) % Basophils # 0.03 (0-0.4) x10^3/uL Platelet Estimate (NORMAL) RBC Morphology D-Dimer 0.42 (0.0-0.50) mg/L Sodium 139 (137-145) mmol/L Potassium 3.7 (3.5-5.1) mmol/L Chloride 104 (98-107) mmol/L Carbon Dioxide 29 (22-30) mmol/L Anion Gap 10.2 (5-15) MEQ/L BUN 13 (7-17) mg/dL Creatinine 0.67 (0.52-1.04) mg/dL Estimated GFR 99.4 ML/MIN Glucose 99 (74-106) mg/dL Calcium 9.2 (8.4-10.2) mg/dL Total Bilirubin 1.30 (0.2-1.3) mg/dL AST 24 (14-36) U/L ALT 30 (0-35) U/L Alkaline Phosphatase 84 (38-126) U/L Troponin I (0.000-0.034) ng/mL Serum Total Protein 6.6 (6.3-8.2) g/dL Albumin 4.0 (3.5-5.0) g/dL Urine Color (Yellow) Urine Appearance (Clear) Urine pH (4.6-8.0) Ur Specific [place] (1.005-1.030) Urine Protein (Negative) Urine Glucose (UA) (Negative) mg/dL Urine Ketones (Negative) Urine Blood (Negative) Urine Nitrite (Negative) Urine Bilirubin (Negative) Urine Urobilinogen (0.2) mg/dL Ur Leukocyte Esterase (Negative) U Hyaline Cast (Auto) (0-2) /LPF Urine Microscopic RBC (0-5) /HPF Urine Microscopic WBC (0-5) /HPF Ur Epithelial Cells (None Seen) /HPF Urine Bacteria (None Seen) /HPF Urine Culture Reflexed (NO) Influenza Type A Ag (NEGATIVE) Influenza Type B Ag (NEGATIVE) RSV (PCR) (NEGATIVE) SARS-CoV-2 (PCR) (NEGATIVE) 12/12/23 12/12/23 12/12/23 Range/Units 21:20 21:20 21:53 WBC (4.0-10.5) x10^3/uL RBC (4.1-5.4) x10^6/uL Hgb (12.0-16.0) g/dL Hct (35-47) % MCV (78-100) fL MCH (26-32) pg MCHC (32-36) g/dL RDW (11.5-14.0) % Plt Count (150-450) x10^3/uL MPV (7.5-11.0) fL Gran % (36.0-66.0) % Immature Gran % (Auto) (0.00-0.4) % Nucleat RBC Rel Count (0.00-0.1) % Eos # (Auto) (0-0.5) x10^3/uL Immature Gran # (Auto) (0.00-0.03) x10^3u/L Absolute Lymphs (auto) (1.0-4.6) x10^3/uL Absolute Monos (auto) (0.0-1.3) x10^3/uL Absolute Nucleated RBC (0.00-0.01) x10^3u/L Lymphocytes % (24.0-44.0) % Monocytes % (0.0-12.0) % Eosinophils % (0.00-5.0) % Basophils % (0.0-0.4) % Absolute Granulocytes (1.4-6.9) x10^3/uL Segmented Neutrophils (36.0-66.0) % Lymphocytes (Manual) (24-44) % Monocytes (Manual) (0.0-12.0) % Eosinophils (Manual) (0.00-3.0) % Basophils (Manual) (0.0-1.0) % Basophils # (0-0.4) x10^3/uL Platelet Estimate (NORMAL) RBC Morphology D-Dimer (0.0-0.50) mg/L Sodium (137-145) mmol/L Potassium (3.5-5.1) mmol/L Chloride (98-107) mmol/L Carbon Dioxide (22-30) mmol/L Anion Gap (5-15) MEQ/L BUN (7-17) mg/dL Creatinine (0.52-1.04) mg/dL Estimated GFR ML/MIN Glucose (74-106) mg/dL Calcium (8.4-10.2) mg/dL Total Bilirubin (0.2-1.3) mg/dL AST (14-36) U/L ALT (0-35) U/L Alkaline Phosphatase (38-126) U/L Troponin I < 0.012 (0.000-0.034) ng/mL Serum Total Protein (6.3-8.2) g/dL Albumin (3.5-5.0) g/dL Urine Color Yellow (Yellow) Urine Appearance Clear (Clear) Urine pH 7.5 (4.6-8.0) Ur Specific [place] 1.015 (1.005-1.030) Urine Protein Negative (Negative) Urine Glucose (UA) >=1000 A (Negative) mg/dL Urine Ketones Trace A (Negative) Urine Blood Negative (Negative) Urine Nitrite Negative (Negative) Urine Bilirubin Negative (Negative) Urine Urobilinogen 1.0 A (0.2) mg/dL Ur Leukocyte Esterase Negative (Negative) U Hyaline Cast (Auto) NONE SEEN (0-2) /LPF Urine Microscopic RBC 0-2 (0-5) /HPF Urine Microscopic WBC 3-5 (0-5) /HPF Ur Epithelial Cells None Seen (None Seen) /HPF Urine Bacteria None Seen (None Seen) /HPF Urine Culture Reflexed NO (NO) Influenza Type A Ag NEGATIVE (NEGATIVE) Influenza Type B Ag NEGATIVE (NEGATIVE) RSV (PCR) NEGATIVE (NEGATIVE) SARS-CoV-2 (PCR) NEGATIVE (NEGATIVE) 12/13/23 12/13/23 12/13/23 Range/Units 00:36 05:01 05:01 WBC 10.5 (4.0-10.5) x10^3/uL RBC 3.93 L (4.1-5.4) x10^6/uL Hgb 11.3 L (12.0-16.0) g/dL Hct 36.6 (35-47) % MCV 93.1 (78-100) fL MCH 28.8 (26-32) pg MCHC 30.9 L (32-36) g/dL RDW 18.8 H (11.5-14.0) % Plt Count 204 (150-450) x10^3/uL MPV 10.4 (7.5-11.0) fL Gran % (36.0-66.0) % Immature Gran % (Auto) (0.00-0.4) % Nucleat RBC Rel Count (0.00-0.1) % Eos # (Auto) (0-0.5) x10^3/uL Immature Gran # (Auto) (0.00-0.03) x10^3u/L Absolute Lymphs (auto) (1.0-4.6) x10^3/uL Absolute Monos (auto) (0.0-1.3) x10^3/uL Absolute Nucleated RBC (0.00-0.01) x10^3u/L Lymphocytes % (24.0-44.0) % Monocytes % (0.0-12.0) % Eosinophils % (0.00-5.0) % Basophils % (0.0-0.4) % Absolute Granulocytes (1.4-6.9) x10^3/uL Segmented Neutrophils 53 (36.0-66.0) % Lymphocytes (Manual) 37 (24-44) % Monocytes (Manual) 4 (0.0-12.0) % Eosinophils (Manual) 5 H (0.00-3.0) % Basophils (Manual) 1 (0.0-1.0) % Basophils # (0-0.4) x10^3/uL Platelet Estimate NORMAL (NORMAL) RBC Morphology NORMAL D-Dimer (0.0-0.50) mg/L Sodium 140 (137-145) mmol/L Potassium 3.5 (3.5-5.1) mmol/L Chloride 104 (98-107) mmol/L Carbon Dioxide 30 (22-30) mmol/L Anion Gap 9.8 (5-15) MEQ/L BUN 14 (7-17) mg/dL Creatinine 0.67 (0.52-1.04) mg/dL Estimated GFR 99.4 ML/MIN Glucose 84 (74-106) mg/dL Calcium 8.8 (8.4-10.2) mg/dL Total Bilirubin 1.10 (0.2-1.3) mg/dL AST 25 (14-36) U/L ALT 27 (0-35) U/L Alkaline Phosphatase 76 (38-126) U/L Troponin I < 0.012 (0.000-0.034) ng/mL Serum Total Protein 6.3 (6.3-8.2) g/dL Albumin 3.7 (3.5-5.0) g/dL Urine Color (Yellow) Urine Appearance (Clear) Urine pH (4.6-8.0) Ur Specific [place] (1.005-1.030) Urine Protein (Negative) Urine Glucose (UA) (Negative) mg/dL Urine Ketones (Negative) Urine Blood (Negative) Urine Nitrite (Negative) Urine Bilirubin (Negative) Urine Urobilinogen (0.2) mg/dL Ur Leukocyte Esterase (Negative) U Hyaline Cast (Auto) (0-2) /LPF Urine Microscopic RBC (0-5) /HPF Urine Microscopic WBC (0-5) /HPF Ur Epithelial Cells (None Seen) /HPF Urine Bacteria (None Seen) /HPF Urine Culture Reflexed (NO) Influenza Type A Ag (NEGATIVE) Influenza Type B Ag (NEGATIVE) RSV (PCR) (NEGATIVE) SARS-CoV-2 (PCR) (NEGATIVE) 12/13/23 Range/Units 05:20 WBC (4.0-10.5) x10^3/uL RBC (4.1-5.4) x10^6/uL Hgb (12.0-16.0) g/dL Hct (35-47) % MCV (78-100) fL MCH (26-32) pg MCHC (32-36) g/dL RDW (11.5-14.0) % Plt Count (150-450) x10^3/uL MPV (7.5-11.0) fL Gran % (36.0-66.0) % Immature Gran % (Auto) (0.00-0.4) % Nucleat RBC Rel Count (0.00-0.1) % Eos # (Auto) (0-0.5) x10^3/uL Immature Gran # (Auto) (0.00-0.03) x10^3u/L Absolute Lymphs (auto) (1.0-4.6) x10^3/uL Absolute Monos (auto) (0.0-1.3) x10^3/uL Absolute Nucleated RBC (0.00-0.01) x10^3u/L Lymphocytes % (24.0-44.0) % Monocytes % (0.0-12.0) % Eosinophils % (0.00-5.0) % Basophils % (0.0-0.4) % Absolute Granulocytes (1.4-6.9) x10^3/uL Segmented Neutrophils (36.0-66.0) % Lymphocytes (Manual) (24-44) % Monocytes (Manual) (0.0-12.0) % Eosinophils (Manual) (0.00-3.0) % Basophils (Manual) (0.0-1.0) % Basophils # (0-0.4) x10^3/uL Platelet Estimate (NORMAL) RBC Morphology D-Dimer (0.0-0.50) mg/L Sodium (137-145) mmol/L Potassium (3.5-5.1) mmol/L Chloride (98-107) mmol/L Carbon Dioxide (22-30) mmol/L Anion Gap (5-15) MEQ/L BUN (7-17) mg/dL Creatinine (0.52-1.04) mg/dL Estimated GFR ML/MIN Glucose (74-106) mg/dL Calcium (8.4-10.2) mg/dL Total Bilirubin (0.2-1.3) mg/dL AST (14-36) U/L ALT (0-35) U/L Alkaline Phosphatase (38-126) U/L Troponin I < 0.012 (0.000-0.034) ng/mL Serum Total Protein (6.3-8.2) g/dL Albumin (3.5-5.0) g/dL Urine Color (Yellow) Urine Appearance (Clear) Urine pH (4.6-8.0) Ur Specific [place] (1.005-1.030) Urine Protein (Negative) Urine Glucose (UA) (Negative) mg/dL Urine Ketones (Negative) Urine Blood (Negative) Urine Nitrite (Negative) Urine Bilirubin (Negative) Urine Urobilinogen (0.2) mg/dL Ur Leukocyte Esterase (Negative) U Hyaline Cast (Auto) (0-2) /LPF Urine Microscopic RBC (0-5) /HPF Urine Microscopic WBC (0-5) /HPF Ur Epithelial Cells (None Seen) /HPF Urine Bacteria (None Seen) /HPF Urine Culture Reflexed (NO) Influenza Type A Ag (NEGATIVE) Influenza Type B Ag (NEGATIVE) RSV (PCR) (NEGATIVE) SARS-CoV-2 (PCR) (NEGATIVE) - Radiology Exams Ordered Rad Exams-Entire Visit: Radiology Procedures Category Date Time Status CHEST 1 VIEW (PORTABLE) Stat Exams 12/12/23 22:21 Completed HEAD WITHOUT CONTRAST [CT] Stat Exams 12/12/23 22:21 Completed - Procedures and Test Procedures and Tests throughout Hospitalization: Therapy Orders & Screens 12/13/23 01:59 EKG PRN Comment: Diagnosis: chest pain/headache 12/13/23 04:24 Oxygen Nasal Cannula 2 lpm Comment: Diagnosis: chest pain/headache Respiratory Therapy Assessment DAILY Comment: Diagnosis: chest pain/headache 12/13/23 07:37 RT Miscellaneous Order ROUTINE Comment: Physician Instructions: Reason For Exam: eval for home O2 Diagnosis: chest pain/headache Discharge Exam General Appearance: no apparent distress, alert Neurologic Exam: alert, oriented x 3, cooperative, normal mood/affect, nml cerebellar function, sensation nml, No motor deficits Eye Exam: PERRL, EOMI, eyes nml inspection Ears, Nose, Throat Exam: normal ENT inspection, pharynx normal, moist mucous membranes Neck Exam: normal inspection, non-tender, supple, full range of motion Respiratory Exam: normal breath sounds, lungs clear, No respiratory distress Cardiovascular Exam: regular rate/rhythm, normal heart sounds Gastrointestinal/Abdomen Exam: soft, No tenderness, No mass Pelvic Exam: deferred Rectal Exam: deferred Back Exam: normal inspection, normal range of motion, No CVA tenderness, No vertebral tenderness Extremity Exam: normal inspection, normal range of motion Skin Exam: normal color, warm, dry Final Diagnosis/Problem List - Final Discharge Diagnosis/Problem (1) Headache Current Visit: Yes Status: Resolved Assessment & Plan: - resolved - CT head negative for acute concern Code(s): R51.9 - HEADACHE, UNSPECIFIED (2) Chest pain Current Visit: Yes Status: Acute Assessment & Plan: - tele - resolved - trop x3 negative - no overnight events - D-dimer WNL - room air - TSH normal on 12/07/23 Code(s): R07.9 - CHEST PAIN, UNSPECIFIED (3) Essential (primary) hypertension Current Visit: Yes Status: Acute Assessment & Plan: - BP stable - continue home meds Code(s): I10 - ESSENTIAL (PRIMARY) HYPERTENSION (4) Hyperlipidemia, unspecified Current Visit: Yes Status: Acute Assessment & Plan: - cont statin - last lipid panel completed 12/07/23, HDL 26 encouraged heart healthy diet and exercise Code(s): E78.5 - HYPERLIPIDEMIA, UNSPECIFIED - Discharge Discharge Date: 12/13/23 Disposition: Home, Self-Care Condition: Stable Prescriptions: Continue Levothyroxine Sodium 75 Mcg [Synthroid 75 Mcg] 75 mcg PO QAM Gemfibrozil [Lopid] 600 mg PO DAILY Citalopram Hydrobromide [Celexa] 40 mg PO DAILY PANTOPRAZOLE 40 mg Tablet [Protonix 40MG Tablet] 40 mg PO QAM #30 tab Zolpidem Tartrate 5 mg PO DAILY Carvedilol 3.125 mg [Coreg 3.125 MG] 6.25 mg PO BID Atorvastatin Calcium 40 mg PO DAILY Multivitamin 1 each PO DAILY Phentermine HCl 37.5 mg PO DAILY Instructions: Chest Pain (DC), Headache, Adult (DC) Additional Instructions: * Eat a heart healthy diet and exercise daily to improve HDL cholesterol. Follow up with PCP as scheduled. Follow up with: ALMA ROSA CASTILLO MD [Primary Care Provider] - 12/21/23 10:45 am Forms: Discharge Instructions
[2023-12-13 12:26] VITALS: BP 134/65; PULSE 81; RESP 18; O2SAT 99
== END 2023-12-13 14:52 | disposition home or self-care (01) ==
LOC: ED 20:13 → MED SURG 12-13 01:48
PROVIDERS: ADMIT Internal Medicine Nephrology; ATTEND Internal Medicine Nephrology
DX: R51.9 Headache, unspecified (principal); R07.9 Chest pain, unspecified; I10 Essential (primary) hypertension; E78.5 Hyperlipidemia, unspecified; Z79.899 Other long term (current) drug therapy; Z20.828 Contact with and (suspected) exposure to other viral communicable diseases; Z85.828 Personal history of other malignant neoplasm of skin; Z59.811 Housing instability, housed, with risk of homelessness
CPT/HCPCS: 0241U; 36000; 36415; 70450; 71045; 80053; 81001; 84484; 85025; 85379; 93005; 93041; 94760; 94762; 96374; 93268; 99285; J1650; J1885; Q3014; A9270-GY; G0378